=== PATIENT | male | born 1955 | race Two or more races ===

== ENCOUNTER 2025-08-10 16:04 | Emergency (ER) | payer OTHER, MEDICAID ==
[~2025-08-10] VITALS: Ht 172.7 cm; Wt 102.2 kg
[2025-08-10 16:06] VITALS: BP 183/101; RESP 16; TEMP 98; O2SAT 94
--- NOTE | 2025-08-10 16:26 | ECG ---
[facility] Test Date: 2025-08-10 Test Time: 16:19:49 Pat Name: ALYSA MARTINEZ Department: ED Room: Gender: M Social Media Specialist: DINA : 1955 Requested By: HIRA ISABEL Order Number: [id number] Reading MD: Иван Clancy Measurements Intervals [place] Rate: 75 P: 56 NC: 183 QRS: -59 QRSD: 106 T: -24 QT: 401 QTc: 448 Interpretive Statements Sinus rhythm Incomplete RBBB and LAFB Abnormal R-wave progression, early transition Probable LVH with secondary repol abnrm Electronically Signed On 08-16-2025 9:10:19 PDT by Иван Clancy Please click the below link to view image of tracing.
[2025-08-10 16:30] VITALS: PULSE 75
--- NOTE | 2025-08-10 16:30 | ED.PDOC ---
History of Present Illness HPI Comments 70-year-old male who comes in with chief complaint of elevated blood sugar. The patient also had an elevated blood pressure of 183/101. The patient went to the doctor's office today for a regular checkup. At the office, the patient's blood pressure was significantly elevated so he was sent to the emergency department's for evaluation. The patient has been having headaches off and on since this morning. He also states that he has been having headaches off and on some other mornings. Patient denies any chest pain or shortness a breath. There has been no nausea, vomiting or fever. Upon arrival, the patient is not having any chest pain. The patient states that he is compliant with his medications. Patient was given clonidine 0.3 mg by mouth by the primary care physician prior to arrival to the emergency department's. Chief Complaint: High Blood Pressure Time Seen by MD: 16:06 Reviewed Notes: Nurses Notes, Medications, Allergies (No allergies to medications) Allergies: Coded Allergies: NO KNOWN ALLERGIES (Unverified , 08/10/25) Information Source: Patient Mode of Arrival: Ambulatory Severity: Moderate Timing: Days Duration: Since onset Prehospital treatment: None Associated signs and symptoms The patient denies any chest pain or shortness for breath but the patient is having a headache Past Medical History PAST MEDICAL HISTORY: Cancer (Prostate), DM, High Lipids, HTN Surgical History (Other): Abdominal surgery Family History Family History: No family hx of Cancer, No family hx of DM, No family hx of Heart shruti Social History Smoker: Non-Smoker Alcohol: Denies ETOH Use Drugs: Denies Drug Use Lives In: Home Constitutional: denies: chills, diaphoresis, fatigue, fever, malaise, sweats, weakness, others EENTM: denies: blurred vision, double vision, ear bleeding, ear discharge, ear drainage, ear pain, ear ringing, eye pain, eye redness, hearing loss, mouth pain, mouth swelling, nasal discharge, nose bleeding, nose congestion, nose pain, photophobia, tearing, throat pain, throat swelling, voice changes, others Respiratory: denies: cough, hemoptysis, orthopnea, SOB at rest, shortness of breath, SOB with excertion, stridor, wheezing, others Cardiovascular: denies: chest pain, dizzy spells, diaphoresis, Dyspnea on exertion, edema, irregular heart beat, left arm pain, lightheadedness, palpitations, PND, syncope, others Gastrointestinal: denies: abdomen distended, abdominal pain, blood streaked bowels, constipated, diarrhea, dysphagia, difficulty swallowing, hematemesis, melena, nausea, poor appetite, poor fluid intake, rectal bleeding, rectal pain, vomiting, others Genitourinary: denies: burning, dysuria, flank pain, frequency, hematuria, inc ontinence, penile discharge, penile sore, pain, testicle pain, testicle swelling, urgency, others Neurological: reports: headache; denies: dizziness, fainting, left sided numbness, left sided weakness, numbness, paresthesia, pre-existing deficit, right sided numbness, right sided weakness, seizure, speech problems, tingling, tremors, weakness, others Musculoskeletal: denies: back pain, gout, joint pain, joint swelling, muscle pain, muscle stiffness, neck pain, others Integumetry: denies: bruises, change in color, change in hair/nails, dryness, laceration, lesions, lumps, rash, wounds, others Allergic/Immunocompromised: denies: Difficulty Healing, Frequent Infections, Hives, Itching, others Hematologic/Lymphatic: denies: anemia, blood clots, easy bleeding, easy bruising, swollen glands, others Endocrine: denies: excessive hunger, excessive sweating, excessive thirst, excessive urination, flushing, intolerance to cold, intolerance to heat, unexplained weight gain, unexplained weight loss, others Psychiatric: denies: anxiety, bipolar disorder, depression, hopeless, panic disorder, schizophrenia, sleepless, suicidal, others Physical Exam General Appearance: Moderate Distress HEENT: Normal ENT Inspection, Pharynx Normal, TMs Normal Neck: Full Range of Motion, Non-Tender, Normal, Normal Inspection Respiratory: Chest Non-Tender, Lungs Clear, No Accessory Muscle Use, No Resp iratory Distress, Normal Breath Sounds Cardiovascular: No Edema, No JVD, No Murmur, No Gallop, Normal Peripheral Pulses, Regular Rate/Rhythm Breast Exam: Deferred Gastrointestinal: No Organomegaly, Non Tender, No Pulsatile Mass, Normal Bowel Sounds, Soft Genitalia: Deferred Pelvic: Deferred Rectal: Deferred Extremities: No calf tenderness, Normal capillary refill, Normal inspection, Normal range of motion, Non-tender, No pedal edema Musculoskeletal : Apperance: Normal Neurologic: Alert, behavioral pediatrician II-XII nml as Tested, No Motor Deficits, Normal Affect, Normal Mood, No Sensory Deficits Cerebellar Function: Normal Reflexes: Normal Skin: Dry, Normal Color, Warm Lymphatic: No Adenopathy Was a procedure done? Was a procedure done?: No EKG EKG : Pulse Rate (adult): 75 [place]: Normal Cardiac Rhythm: NSR ST: Nonsp (Incomplete right bundle-branch block) Differential Dx Considerations may include: Generalized weakness, electrolyte imbalance, dehydration, ACS, NH, hypertensive crisis X-Ray, Labs, Meds, VS Vital Signs Date Time Temp Pulse Resp B/P (MAP) Pulse Ox O2 Delivery O2 Flow Rate FiO2 08/10/25 16:30 75 08/10/25 16:19 75 08/10/25 16:06 98.0 80 16 183/101 94 98.0 Lab Test 08/10/25 16:46 08/10/25 16:23 Range/Units White Blood Count 4.8 4.4-10.8 10^3/uL Red Blood Count 5.10 4.5-5.90 10^6/uL Hemoglobin 14.7 13.5-17.5 g/dL Hematocrit 42.9 41.0-53.0 % Mean Corpuscular Volume 84.1 80.0-100.0 fL Mean Corpuscular Hemoglobin 28.9 28.0-32.0 pg Mean Corpuscular Hemoglobin Concent 34.3 32.0-36.0 g/dL Red Cell Distribution Width 13.7 11.8-14.3 % Platelet Count 234 140-450 10^3/uL Mean Platelet Volume 7.5 6.9-10.8 fL Neutrophils (%) (Auto) 56.2 37.0-80.0 % Lymphocytes (%) (Auto) 29.1 10.0-50.0 % Monocytes (%) (Auto) 11.7 0.0-12.0 % Eosinophils (%) (Auto) 2.7 0.0-7.0 % Basophils (%) (Auto) 0.3 0.0-2.0 % Neutrophils # (Auto) 2.7 1.6-8.6 10 ^3/uL Lymphocytes # (Auto) 1.4 0.4-5.4 10 ^3/uL Monocytes # (Auto) 0.6 0-1.3 10 ^3/uL Eosinophils # (Auto) 0.1 0-0.8 10 ^3/uL Basophils # (Auto) 0 0-0.2 10 ^3/uL Nucleated Red Blood Cells 0.2 % Sodium Level 134 L 136-145 mmol/L Potassium Level 3.8 3.5-5.1 mmol/L Chloride Level 100 98-107 mmol/L Carbon Dioxide Level 24 20-31 mmol/L Anion Gap 10 5-15 Blood Urea Nitrogen 9 9-23 mg/dL Creatinine 0.91 0.700-1.30 mg/dL Glomerular Filtration Rate Calc 90 >90 mL/min BUN/Creatinine Ratio 9.9 L 10.0-20.0 Serum Glucose 367 H 74-106 mg/dL Calcium Level 8.9 8.7-10.4 mg/dL POC Glucose 373 H 70-106 mg/dl The patient was given clonidine for the elevated blood pressure The patient's CBC is within normal limits The patient's chemistry panel is within normal limits The patient was initially given clonidine 0.3 mg by mouth by the primary care doctor We had to repeat another clonidine here in the emergency department's The patient is hyperglycemic The patient is being admitted at this time Images Reviewed?: Images reviewed and evaluated by me Time of 1ST Reevaluation: 16:29 Reevaluation 1ST: Unchanged Time of 2ND Reevaluation: 20:19 Reevaluation 2ND: Unchanged Patient Education/Counseling: Diagnosis, Treatment, Prognosis Family Education/Counseling: No Family Present SEPSIS Sepsis Screen Date sepsis recognized/suspect: Aug 10, 2025 Time Sepsis recognized/suspect: 1606 Recent Procedure: No On Antibiotic Therapy: No Respiratory Rate >20: No Heart Rate >90: No Temp<36 C (96.8 F) or >38.3 C: No SBP <90 or MAP <65 mmHG: No New Acute Mental Status Change: No Is the patient on CPAP, BIPAP,: No Physician Orders Urinalysis (08/10/25 16:24) Heplock Iv (08/10/25 16:24) Business Objects Analyst (08/10/25 16:24) Blood Pressure (08/10/25 16:24) Pulse Oximetry (08/10/25 16:24) Vital Signs Date Time Temp Pulse Resp B/P (MAP) Pulse Ox O2 Delivery O2 Flow Rate FiO2 08/10/25 16:30 75 08/10/25 16:19 75 08/10/25 16:06 98.0 80 16 183/101 94 98.0 Laboratory Tests Test 08/10/25 16:46 White Blood Count 4.8 10^3/uL (4.4-10.8) Departure 1 Departure Time of Disposition: 20:18 Impression: Primary Impression: Accelerated hypertension Additional Impression: Uncontrolled diabetes mellitus Qualified Codes: E13.65 - Other specified diabetes mellitus with hyperglycemia Disposition: ADMITTED INPATIENT Admit to: Tele Condition: Fair Critical Care Note Critical Care Time?: Yes (45 min-critical care time only) Stability Stability form required: Yes Unstable for transfer: Telemetry monitoring (Telemetry monitoring required), ED Physician Assesment (Clinical assesment) Heart Score Heart Score: Heart Score Response (Comments) Value History N/A 0 EKG N/A 0 Age N/A 0 Risk Factors N/A 0 Troponin N/A 0 Total 0 HIRA ISABEL MD Aug 10, 2025 16:30
[2025-08-10 16:59] LABS: Hematocrit 42.9 % (41.0-53.0); Hemoglobin 14.7 g/dL (13.5-17.5); Mean Corpuscular Hemoglobin 28.9 pg (28.0-32.0); Mean Corpuscular Volume 84.1 fL (80.0-100.0); Nucleated Red Blood Cells % 0.2 %
[2025-08-10 17:03] LABS: Chloride 100 mmol/L (98-107); Potassium 3.8 mmol/L (3.5-5.1)
[2025-08-10 17:04] LABS: Anion Gap 10 (5-15); Calcium 8.9 mg/dL (8.7-10.4); Carbon Dioxide 24 mmol/L (20-31)
[2025-08-10 17:05] LABS: Sodium 134 mmol/L (136-145)
[2025-08-10 17:09] LABS: BUN/Creatinine Ratio 9.9 (10.0-20.0)
[2025-08-10 17:10] LABS: Blood Urea Nitrogen 9 mg/dL (9-23); Glucose 367 mg/dL (74-106)
== END 2025-08-10 23:14 | disposition left against medical advice (07) ==
LOC: ER 16:08
DX: I10 Essential (primary) hypertension (principal); E11.65 Type 2 diabetes mellitus with hyperglycemia
CPT/HCPCS: 36415; 80048; 82947; 82962; 85025; 93005

== ENCOUNTER 2025-08-11 10:24 | Inpatient (IN) | payer OTHER, MEDICAID ==
[~2025-08-11] VITALS: Ht 172.7 cm; Wt 99.7 kg
[2025-08-11] VITALS (7 sets, daily range): BP systolic 137–154; BP diastolic 81–95; PULSE 74–94; RESP 15–18; TEMP 97.8–98.9; O2SAT 95–96
--- NOTE | 2025-08-11 11:23 | ED.PDOC ---
History of Present Illness HPI Comments This is a 70 year old male presenting to the ED with chief complaint of HTN and hyperglycemia. Patient reports that he has been experiencing increased blood pressure and blood sugar for the past 2 days despite taking his medication, so he had been sent by his PCP to come to the ED for further evaluation. Patient relays that his son recently and his was yesterday, believing his BP increasing is due to an increase in stress. Patient denies any headache, chest pain, SOB, dizziness, or syncope. Chief Complaint: High Blood Pressure Time Seen by MD: 11:18 Reviewed Notes: Nurses Notes, Medications, Allergies Allergies: Coded Allergies: NO KNOWN ALLERGIES (Unverified , 08/10/25) Information Source: Patient Mode of Arrival: Ambulatory Severity: Moderate Timing: Days Duration: Since onset Past Medical History PAST MEDICAL HISTORY: Cancer, DM, High Lipids, HTN Surgical History: Denies all surgeries Family History Family History: Reviewed,noncontributory to illness, No family hx of Cancer, No family hx of DM, No family hx of Heart shruti Social History Smoker: Non-Smoker Alcohol: Denies ETOH Use Drugs: Denies Drug Use Lives In: Home Constitutional: denies: chills, diaphoresis, fatigue, fever, malaise, sweats, weakness, others EENTM: denies: blurred vision, double vision, ear bleeding, ear discharge, ear drainage, ear pain, ear ringing, eye pain, eye redness, hearing loss, mouth pain, mouth swelling, nasal discharge, nose bleeding, nose congestion, nose pain, photophobia, tearing, throat pain, throat swelling, voice changes, others Respiratory: denies: cough, hemoptysis, orthopnea, SOB at rest, shortness of breath, SOB with excertion, stridor, wheezing, others Cardiovascular: denies: chest pain, dizzy spells, diaphoresis, Dyspnea on exertion, edema, irregular heart beat, left arm pain, lightheadedness, palpitations, PND, syncope, others Gastrointestinal: denies: abdomen distended, abdominal pain, blood streaked bowels, constipated, diarrhea, dysphagia, difficulty swallowing, hematemesis, melena, nausea, poor appetite, poor fluid intake, rectal bleeding, rectal pain, vomiting, others Genitourinary: denies: burning, dysuria, flank pain, frequency, hematuria, incontinence, penile discharge, penile sore, pain, testicle pain, testicle swelling, urgency, others Neurological: denies: dizziness, fainting, headache, left sided numbness, left sided weakness, numbness, paresthesia, pre-existing deficit, right sided numbness, right sided weakness, seizure, speech problems, tingling, tremors, weakness, others Musculoskeletal: denies: back pain, gout, joint pain, joint swelling, muscle pain, muscle stiffness, neck pain, others Integumetry: denies: bruises, change in color, change in hair/nails, dryness, laceration, lesions, lumps, rash, wounds, others Allergic/Immunocompromised: denies: Difficulty Healing, Frequent Infections, Hives, Itching, others Hematologic/Lymphatic: denies: anemia, blood clots, easy bleeding, easy bruising, swollen glands, others Endocrine: denies: excessive hunger, excessive sweating, excessive thirst, excessive urination, flushing, intolerance to cold, intolerance to heat, unexplained weight gain, unexplained weight loss, others Psychiatric: denies: anxiety, bipolar disorder, depression, hopeless, panic disorder, schizophrenia, sleepless, suicidal, others All Other Systems: Reviewed and Negative Physical Exam General Appearance: Moderate Distress, Normal HEENT: Normal ENT Inspection, Pharynx Normal, TMs Normal Neck: Full Range of Motion, Non-Tender, Normal, Normal Inspection Respiratory: Chest Non-Tender, Lungs Clear, No Accessory Muscle Use, No Respiratory Distress, Normal Breath Sounds Cardiovascular: No Edema, No JVD, No Murmur, No Gallop, Normal Peripheral Pulses, Regular Rate/Rhythm Breast Exam: Deferred Gastrointestinal: No Organomegaly, Non Tender, No Pulsatile Mass, Normal Bowel Sounds, Soft Genitalia: Deferred Pelvic: Deferred Rectal: Deferred Extremities: No calf tenderness, Normal capillary refill, Normal inspection, Normal range of motion, Non-tender, No pedal edema Musculoskeletal : Apperance: Normal Neurologic: Alert, title i teacher II-XII nml as Tested, No Motor Deficits, Normal Affect, Normal Mood, No Sensory Deficits Cerebellar Function: Normal Reflexes: Normal Skin: Dry, Normal Color, Warm Peripheral Pulses: 3+ Radial (R), 3+ Radial (L) Lymphatic: No Adenopathy Was a procedure done? Was a procedure done?: No Differential Dx Considerations may include: Anemia Electrolyte imbalance X-Ray, Labs, Meds, VS Vital Signs Date Time Temp Pulse Resp B/P (MAP) Pulse Ox O2 Delivery O2 Flow Rate FiO2 08/11/25 10:34 75 08/11/25 10:28 98.0 79 13 189/105 96 98.0 Lab Test 08/11/25 11:12 08/11/25 10:35 Range/Units White Blood Count 4.7 4.4-10.8 10^3/uL Red Blood Count 5.17 4.5-5.90 10^6/uL Hemoglobin 15.1 13.5-17.5 g/dL Hematocrit 43.5 41.0-53.0 % Mean Corpuscular Volume 84.1 80.0-100.0 fL Mean Corpuscular Hemoglobin 29.2 28.0-32.0 pg Mean Corpuscular Hemoglobin Concent 34.7 32.0-36.0 g/dL Red Cell Distribution Width 13.5 11.8-14.3 % Platelet Count 244 140-450 10^3/uL Mean Platelet Volume 7.4 6.9-10.8 fL Neutrophils (%) (Auto) 60.7 37.0-80.0 % Lymphocytes (%) (Auto) 25.9 10.0-50.0 % Monocytes (%) (Auto) 10.0 0.0-12.0 % Eosinophils (%) (Auto) 3.3 0.0-7.0 % Basophils (%) (Auto) 0.1 0.0-2.0 % Neutrophils # (Auto) 2.8 1.6-8.6 10 ^3/uL Lymphocytes # (Auto) 1.2 0.4-5.4 10 ^3/uL Monocytes # (Auto) 0.5 0-1.3 10 ^3/uL Eosinophils # (Auto) 0.2 0-0.8 10 ^3/uL Basophils # (Auto) 0 0-0.2 10 ^3/uL Nucleated Red Blood Cells 0.1 % Sodium Level 140 # 136-145 mmol/L Potassium Level 3.8 3.5-5.1 mmol/L Chloride Level 101 98-107 mmol/L Carbon Dioxide Level 28 20-31 mmol/L Anion Gap 11 5-15 Blood Urea Nitrogen 17 9-23 mg/dL Creatinine 0.91 0.700-1.30 mg/dL Glomerular Filtration Rate Calc 90 >90 mL/min BUN/Creatinine Ratio 18.7 10.0-20.0 Serum Glucose 332 H 74-106 mg/dL Calcium Level 9.3 8.7-10.4 mg/dL Troponin I High Sensitivity 23 </=54 ng/L POC Glucose 355 H 70-106 mg/dl Patient alert. Blood sugar elevated. Blood pressure elevated. WBC within normal limits. Hemoglobin within normal limits. Ambulating. Patient he is under lot of stress. EKG reviewed does not show any acute process. Explained to the patient. Continue monitoring. Time of 1ST Reevaluation: 12:18 Reevaluation 1ST: Improved Patient Education/Counseling: Diagnosis, Treatment Family Education/Counseling: No Family Present SEPSIS Sepsis Screen Date sepsis recognized/suspect: Aug 11, 2025 Time Sepsis recognized/suspect: 1028 Recent Procedure: No On Antibiotic Therapy: No Respiratory Rate >20: No Heart Rate >90: No Temp<36 C (96.8 F) or >38.3 C: No SBP <90 or MAP <65 mmHG: No New Acute Mental Status Change: No Is the patient on CPAP, BIPAP,: No Physician Orders Electrocardigram (08/11/25 10:49) Troponin-I Hs (08/11/25 12:10) Troponin-I Hs (08/11/25 14:10) Vital Signs Date Time Temp Pulse Resp B/P (MAP) Pulse Ox O2 Delivery O2 Flow Rate FiO2 08/11/25 10:34 75 08/11/25 10:28 98.0 79 13 189/105 96 98.0 Laboratory Tests Test 08/11/25 11:12 White Blood Count 4.7 10^3/uL (4.4-10.8) Departure 1 Departure Time of Disposition: 12:11 Impression: Primary Impression: Uncontrolled diabetes mellitus Qualified Codes: E13.65 - Other specified diabetes mellitus with hyperglycemia Additional Impression: Hypertensive urgency Disposition: ADMITTED INPATIENT Admit to: Med Surg Condition: Guarded Critical Care Note Critical Care Time?: Yes (90 min-critical care time only) Stability Stability form required: No Heart Score Heart Score: Heart Score Response (Comments) Value History Slightly Suspicious 0 EKG Normal 0 Age >65 2 Risk Factors >3 or Hx ASHD 2 Troponin Normal limit 0 Total 4 I personally scribed for TATY HILLIARD MD ([email or web address]) on 08/11/25 at 11:23. Electronically submitted by German Lord ([email or web address]). TATY HILLIARD MD Aug 11, 2025 11:23
[2025-08-11 11:33] LABS: Hematocrit 43.5 % (41.0-53.0); Hemoglobin 15.1 g/dL (13.5-17.5); Mean Corpuscular Hemoglobin 29.2 pg (28.0-32.0); Mean Corpuscular Volume 84.1 fL (80.0-100.0); Nucleated Red Blood Cells % 0.1 %
[2025-08-11 11:37] LABS: Chloride 101 mmol/L (98-107); Potassium 3.8 mmol/L (3.5-5.1); Sodium 140 mmol/L (136-145)
[2025-08-11 11:38] LABS: Anion Gap 11 (5-15); Calcium 9.3 mg/dL (8.7-10.4); Carbon Dioxide 28 mmol/L (20-31)
[2025-08-11 11:43] LABS: BUN/Creatinine Ratio 18.7 (10.0-20.0); Blood Urea Nitrogen 17 mg/dL (9-23)
[2025-08-11 11:44] LABS: Glucose 332 mg/dL (74-106)
[2025-08-11] MEDS ORDERED: DEXTROSE (50%) 50ML SYRG IV PRN (13:15)
[2025-08-11] MEDS ORDERED: NITROGLYCERIN 0.4 MG SL TAB SL PRN (13:15)
[2025-08-11] MEDS ORDERED: DOCUSATE SOD 100 MG CAP PO PRN (13:15)
[2025-08-11] MEDS ORDERED: ONDANSETRON HCL 4 MG/2 ML VIAL IV PRN (13:15)
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
[2025-08-11] MEDS: InsuLIN REG 1unit/0.01ml Soln (100units/ml) IV ONE (14:06)
[2025-08-11] MEDS: LISINOPRIL 20 MG TAB PO ONE (14:21)
[2025-08-11] MEDS: InsuLIN REG 1unit/0.01ml Soln (100units/ml) SC SCH ×2 (17:00→21:56)
[2025-08-11] MEDS: ACCU-CHEK COMFORT CURVE STRIP VI SCH (17:00)
--- NOTE | 2025-08-11 17:41 | DVHINCON2 ---
Date Seen: Aug 11, 2025 Referring Physician TEQUILA Ramsay Reason for Consultation Chest pain History of Present Illness This is a 70-year-old male patient who presents to emergency room after being instructed to come here by his primary care provider. The patient reports he has been struggling with controlling his blood pressure as well as his blood sugars at home. He was referred here by his primary doctor Dr. Vincent for concerns with the blood pressure. He denies any symptoms. He does mention the recent loss of his son on 08/02/2025 which has caused him much anxiety and stress. The hospitalists' reason for consultation has been documented as "chest pain". But the patient denies any chest pain prior to emergency room arrival or while in the hospital. Initial twelve lead electrocardiogram reveals normal sinus rhythm with nonspecific T-wave changes to inferior leads. Initial troponin level of 23ng/L with down trend thereafter. Significant past medical history includes hypertension, type 2 diabetes mellitus, prostate cancer status post radiation, and obesity. The patient admits to not taking his antihypertensives for approximately three weeks due to running out while switching primary care providers. He also mentions a previous coronary angiogram in 2019 in which no catheter based intervention was deemed necessary. Past Medical History Past medical history reviewed. No other significant than mentioned above. Past Surgical History Denies any previous surgeries Family History: Diabetes mellitus Hypertension Family History Family history reviewed. Social History Patient admits to previous marijuana use Denies any tobacco use Denies alcohol use Allergies: Coded Allergies: NO KNOWN ALLERGIES (Unverified , 08/10/25) Home Meds Home medications reviewed. Current Medications Current Medications Medications (Trade) Dose Ordered Sig/Radha Route PRN Reason Start Time Stop Time Status Last Admin Ondansetron HCl (Zofran) 4 mg Q4HP PRN IV NAUSEA / VOMITING 08/11/25 13:15 Docusate Sodium (Colace Capsule) 100 mg BIDPRN PRN PO FOR CONSTIPATION 08/11/25 13:15 Enoxaparin Sodium (Lovenox) 40 mg DAILY SC 08/12/25 10:00 Morphine Sulfate 2 mg Q4HPRN PRN IV SEVERE PAIN (7-10 PAIN SCALE) 08/11/25 13:15 Nitroglycerin (Ntrostat Sublingual) 0.4 mg Q5MINP PRN SL FOR CHEST PAIN 08/11/25 13:15 Lisinopril (Zestril Tablet) 20 mg DAILY PO 08/12/25 10:00 Hydralazine HCl (Apresoline Injection) 10 mg Q6HP PRN IV SBP>150 08/11/25 13:15 Diagnostic Test (Pha) (Accu-Chek Comfort Curve T) 1 strip ACHS 08/11/25 17:00 Insulin Human Regular (InsuLIN R) HS SC 08/11/25 22:00 Insulin Human Regular (InsuLIN R) AC SC 08/11/25 17:00 Dextrose 50 ml UD PRN IV Blood Sugar LESS THAN 60 08/11/25 13:15 Aspirin 81 mg DAILY PO 08/12/25 10:00 Atorvastatin Calcium (Lipitor) 20 mg HS PO 08/11/25 22:00 Review of Systems Constitutional: No symptom reported Ears, Nose, & Throat: No symptom reported Eyes: No symptom reported Neurological: No symptoms reported Pulmonary/Respiratory: No symptoms reported Cardiovascular: No symptom reported Gastrointestinal: No symptom reported Genitourinary: No symptom reported Musculoskeletal: No symptom reported Skin: No symptom reported Psychiatric: No symptom reported Endocrine: No symptom reported Hematologic/Lymphatic: No symptom reported Vital Signs Vital Signs Date Time Temp Pulse Resp B/P (MAP) Pulse Ox O2 Delivery O2 Flow Rate FiO2 08/11/25 16:43 80 16 96 Room Air* 0 21 08/11/25 16:30 97.8 137/81 (99) 97.8 Physical Exam General Appearance: Cooperative. Well-developed. Well-nourished. No acute distress. Pulmonary/Respiratory: Clear, bilateral breaths sounds. Cardiovascular/Chest: Regular rate and rhythm. Peripheral Pulses: 2+ Radial (R). 2+ Radial (L). 2+ Pedal (R). 2+ Pedal (L) Abdominal Exam: Normal bowel sounds. Ankle Exam: Bilateral nonpitting ankle edema Lower extremities: Negative lower extremity edema Neuro/Mental Status: A/OX4, coherent. Thoughts/Psych: Normal thought pattern. Appropriate mood and affect. Good judgment and insight. Appearance: No acute distress. Skin Exam: Normal inspection. Normal color. Warm and dry. Labs/Diagnostic Data Labs Test 08/11/25 14:02 08/11/25 12:22 08/11/25 11:12 Range/Units POC Glucose 247 H 70-106 mg/dl Troponin I High Sensitivity 22 </=54 ng/L Beta-Hydroxybutyric Acid 0.101 < 0.4 mmol/L White Blood Count 4.7 4.4-10.8 10^3/uL Red Blood Count 5.17 4.5-5.90 10^6/uL Hemoglobin 15.1 13.5-17.5 g/dL Hematocrit 43.5 41.0-53.0 % Mean Corpuscular Volume 84.1 80.0-100.0 fL Mean Corpuscular Hemoglobin 29.2 28.0-32.0 pg Mean Corpuscular Hemoglobin Concent 34.7 32.0-36.0 g/dL Red Cell Distribution Width 13.5 11.8-14.3 % Platelet Count 244 140-450 10^3/uL Mean Platelet Volume 7.4 6.9-10.8 fL Neutrophils (%) (Auto) 60.7 37.0-80.0 % Lymphocytes (%) (Auto) 25.9 10.0-50.0 % Monocytes (%) (Auto) 10.0 0.0-12.0 % Eosinophils (%) (Auto) 3.3 0.0-7.0 % Basophils (%) (Auto) 0.1 0.0-2.0 % Neutrophils # (Auto) 2.8 1.6-8.6 10 ^3/uL Lymphocytes # (Auto) 1.2 0.4-5.4 10 ^3/uL Monocytes # (Auto) 0.5 0-1.3 10 ^3/uL Eosinophils # (Auto) 0.2 0-0.8 10 ^3/uL Basophils # (Auto) 0 0-0.2 10 ^3/uL Nucleated Red Blood Cells 0.1 % Sodium Level 140 # 136-145 mmol/L Potassium Level 3.8 3.5-5.1 mmol/L Chloride Level 101 98-107 mmol/L Carbon Dioxide Level 28 20-31 mmol/L Anion Gap 11 5-15 Blood Urea Nitrogen 17 9-23 mg/dL Creatinine 0.91 0.700-1.30 mg/dL Glomerular Filtration Rate Calc 90 >90 mL/min BUN/Creatinine Ratio 18.7 10.0-20.0 Serum Glucose 332 H 74-106 mg/dL Calcium Level 9.3 8.7-10.4 mg/dL Assessment Hypertensive urgency Rule out structural heart disease Type 2 diabetes mellitus History prostate cancer status post radiation Morbid obesity Plan/Recommendation We will continue with the following plan/recommendations (Dr. Clancy): We will proceed with obtaining a transthoracic echocardiogram to evaluate cardiac function. Continue with the aggressive blood pressure control as tolerated. Labs: Lipid panel, TSH, UDS pending. Continue with close cardiac surveillance. Further recommendations per clinical course and progression. Thank you for allowing us to care for this patient. Please call with any questions or concerns. Critical care time spent: 44 minutes This medical document was created using an electronic medical record system with voice recognition software and computerized dictation system. Although this document has been carefully reviewed, there might still be some phonetic and typographical errors. Occasional wrong-word or ``sound-alike substitutions may have occurred due to the inherent limitations of voice recognition software. These areas are purely typographical due to imperfections of the software programs and do not reflect any compromise in the patient's medical care. Please read the chart carefully and recognize, using context, where these substitutions have occurred. Plan discussed with: Patient NYHA Physical activity limitations: NA Date of Service: Aug 11, 2025 Billing Provider: CHIOMA GOVEA Cardiology Common Codes: [id number] INP/OBS CARE (High) Cardiology Consultation Codes: [id number] CONSULT <45MIN CHIOMA GOVEA Aug 11, 2025 17:41
--- NOTE | 2025-08-11 17:58 | ECG ---
[facility] Test Date: 2025-08-11 Test Time: 10:34:37 Pat Name: ALYSA MARTINEZ Department: ED Room: 0251T A Gender: M Stoneworker: chelo : 1955 Requested By: TATY HILLIARD Order Number: [id number] Reading MD: Иван Clancy Measurements Intervals Spring Rate: 75 P: 34 [place]: 180 QRS: -51 QRSD: 106 T: -8 QT: 407 QTc: 455 Interpretive Statements Sinus rhythm Incomplete RBBB and LAFB Minimal ST elevation, anterior leads Baseline wander in lead(s) V6 Electronically Signed On 08-16-2025 9:25:48 PDT by Иван Clancy Please click the below link to view image of tracing.
[2025-08-11] MEDS: ATORVASTATIN 20 MG TAB PO SCH (21:57)
[2025-08-12] VITALS (9 sets, daily range): BP systolic 147–166; BP diastolic 83–106; PULSE 67–102; RESP 16–20; TEMP 97.7–98.9; O2SAT 94–99
[2025-08-12] MEDS: hydrALAZINE HCL 20 MG/ML VL IV PRN (02:08)
[2025-08-12 05:32] LABS: Amphetamine Screen, Urine Neg (NEGATIVE); Barbiturate Scree,Urine Neg (NEGATIVE); Benzodiazephine Screen, Urine Neg (NEGATIVE); Cannabinoid Screen, Urine Neg (NEGATIVE); Cocaine Screen, Urine Neg (NEGATIVE); Opiate Scree,Urine Neg (NEGATIVE); Phencyclidine Screen, Urine Neg (NEGATIVE)
[2025-08-12 05:42] LABS: Hematocrit 41.5 % (41.0-53.0); Hemoglobin 14.4 g/dL (13.5-17.5); Mean Corpuscular Hemoglobin 29.1 pg (28.0-32.0); Mean Corpuscular Volume 83.6 fL (80.0-100.0); Nucleated Red Blood Cells % 0.0 %
[2025-08-12 05:58] LABS: Alanine Aminotransferase 32 U/L (7-40); Albumin 3.9 g/dL (3.2-4.8); Alkaline Phosphatase 115 U/L (46-116); Anion Gap 12 (5-15); BUN/Creatinine Ratio 20.0 (10.0-20.0); Blood Urea Nitrogen 17 mg/dL (9-23); Calcium 9.0 mg/dL (8.7-10.4); Carbon Dioxide 24 mmol/L (20-31); Chloride 100 mmol/L (98-107); Magnesium 2.0 mg/dL (1.6-2.6); Potassium 3.8 mmol/L (3.5-5.1); Total Protein 6.6 g/dL (5.7-8.2)
[2025-08-12 05:59] LABS: Bilirubin, Total 0.5 mg/dL (0.2-1.0); Cholesterol 261 mg/dL (< 200); Glucose 282 mg/dL (74-106); HDL Cholesterol 35 mg/dL (40-59); Sodium 136 mmol/L (136-145); Triglycerides 680 mg/dL (< 150)
[2025-08-12] MEDS: LISINOPRIL 20 MG TAB PO SCH (09:23)
[2025-08-12] MEDS: ENOXAPARIN SOD 40 MG/0.4 ML SYRINGE SC SCH (09:24)
--- NOTE | 2025-08-12 17:07 | DVHPN2 ---
Consult Progress Note Subjective Other Systems: Patient was in normal sinus rhythm at time of assessment Denies any cardiac symptoms at time of assessment Objective vital signs Vital Sign Date Time Temp Pulse Resp B/P (MAP) Pulse Ox O2 Delivery O2 Flow Rate FiO2 08/12/25 13:00 98.0 70 20 166/106 (126) 95 98.0 08/12/25 08:00 Room Air* 0 21 Total Intake and Output 08/11/25 08/11/25 08/12/25 15:00 23:00 07:00 Intake Total 1200 ml 750 ml Balance 1200 ml 750 ml medications Current Medications Medications Dose Ordered Sig/Radha Route Start Time Stop Time Status Last Admin Dose Admin Ondansetron HCl 4 mg Q4HP PRN IV 08/11/25 13:15 Docusate Sodium 100 mg BIDPRN PRN PO 08/11/25 13:15 Enoxaparin Sodium 40 mg DAILY SC 08/12/25 10:00 08/12/25 09:24 40 MG Morphine Sulfate 2 mg Q4HPRN PRN IV 08/11/25 13:15 Nitroglycerin 0.4 mg Q5MINP PRN SL 08/11/25 13:15 Lisinopril 20 mg DAILY PO 08/12/25 10:00 08/12/25 09:23 20 MG Hydralazine HCl 10 mg Q6HP PRN IV 08/11/25 13:15 08/12/25 12:55 10 MG Diagnostic Test (Pha) 1 strip ACHS 08/11/25 17:00 08/12/25 11:50 1 STRIP Insulin Human Regular HS SC 08/11/25 22:00 08/11/25 21:56 8 UNITS Insulin Human Regular AC SC 08/11/25 17:00 08/12/25 11:52 9 UNITS Dextrose 50 ml UD PRN IV 08/11/25 13:15 Aspirin 81 mg DAILY PO 08/12/25 10:00 08/12/25 09:23 81 MG Atorvastatin Calcium 80 mg HS PO 08/12/25 22:00 EZETIMIBE 10 mg DAILY PO 08/13/25 10:00 Examination: GENERAL:Normal, LUNGS:Normal, CVS:Normal, NEURO:Normal laboratory and microbiology Laboratory Tests 08/12/25 04:13 Test 08/12/25 04:13 Range/Units Serum Glucose 282 H 74-106 mg/dL Problem List/Assessment/Plan Problem List/Assessment/Plan Hypertensive urgency Rule out structural heart disease Severe hypertriglyceridemia Dyslipidemia Type 2 diabetes mellitus, uncontrolled with hemoglobin A1c 10.0% History prostate cancer status post radiation Morbid obesity Dietary noncompliance Plan/Recommendations (Dr. Clancy): We will proceed with obtaining a transthoracic echocardiogram to evaluate cardiac function. Continue with the aggressive blood pressure control as tolerated. Patient noted to have severe hypertriglyceridemia at 680mg/dL. Increase statin therapy, recommend addition of fenofibrate as outpatient (as we do not carry this medication inpatient). The patient reports being off of all of his medications for over one month while in the process of switching over primary care provider's. The patient reports his previous PCP would not refill his medications if he did not come in to the office to see them. This upset the patient which prompted him to switch providers, but unknowingly to him, the process took longer than expected. Had an extensive conversation with the patient regarding risk factor modifications. During the time of assessment, the patient is noted to have a Alexander's bag at bedside. Patient educated about proper diet as well as compliance with medications. Continue with close cardiac surveillance. Further recommendations per clinical course and progression. Thank you for allowing us to care for this patient. Please call with any questions or concerns. This medical document was created using an electronic medical record system with voice recognition software and computerized dictation system. Although this document has been carefully reviewed, there might still be some phonetic and typographical errors. Occasional wrong-word or ``sound-alike substitutions may have occurred due to the inherent limitations of voice recognition software. These areas are purely typographical due to imperfections of the software programs and do not reflect any compromise in the patient's medical care. Please read the chart carefully and recognize, using context, where these substitutions have occurred. Plan discussed with: Patient Date of Service: Aug 13, 2025 Billing Provider: CHIOMA GOVEA Common Visit Codes: [id number] INP/OBS CARE(HIGH) CHIOMA GOVEA Aug 12, 2025 17:07
[2025-08-12] MEDS: EZETIMIBE 10 MG TAB PO ONE (17:48)
--- NOTE | 2025-08-12 18:23 | DVHPN2 ---
Subjective Patient has stated that he has been struggling with a complaining of blood sugar as well as hypertension. Changes from previous H/P or p: No Changes Eyes: No Pain, No Vision change, No Conjunctivae inflammation, No Eyelid inflammation, No Other, No Redness ENT: No Ear pain, No Ear discharge, No Nose pain, No Nose discharge, No Nose congestion, No Mouth pain, No Mouth swelling, No Throat pain, No Throat swelling, No Other Cardiovascular: No Chest Pain, No Palpitations, No Orthopnea, No Paroxysmal Noc. Dyspnea, No Edema, No Lt Headedness, No Other Respiratory: No Cough, No Dry, No Shortness of breath, No SOB with excertion, No Wheezing, No Hemoptysis, No Pleuritic Pain, No Sputum, No Other Gastrointestinal: No Nausea, No Vomiting, No Abdominal Pain, No Diarrhea, No Constipation, No Melena, No Hematochezia, No Other Genitourinary: No Dysuria, No Frequency, No Incontinence, No Hematuria, No Retention, No Other Musculoskeletal: No other, No neck pain, No shoulder pain, No arm pain, No back pain, No hand pain, No leg pain, No foot pain Skin: No Rash, No Lesions, No Jaundice, No Bruising, No Other Objective Vitals Vital Signs Date Time Temp Pulse Resp B/P (MAP) Pulse Ox O2 Delivery O2 Flow Rate FiO2 08/12/25 17:00 97.7 93 20 151/102 (118) 96 97.7 08/12/25 08:00 Room Air* 0 21 Intake/Output Intake and Output 08/12/25 07:00 Intake Total 1950 ml Balance 1950 ml Intake Oral 1950 ml # Voids 6 # Bowel Movements 1 Exam HEENT pupils are reactive Neck is supple CV is S1-S2 regular rate and rhythm Respiratory diminished breath sounds bases GI positive bowel sound 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 Medications Current Medications Medications Dose Ordered Sig/Radha Route Start Time Stop Time Status Last Admin Dose Admin Ondansetron HCl 4 mg Q4HP PRN IV 08/11/25 13:15 Docusate Sodium 100 mg BIDPRN PRN PO 08/11/25 13:15 Enoxaparin Sodium 40 mg DAILY SC 08/12/25 10:00 08/12/25 09:24 40 MG Morphine Sulfate 2 mg Q4HPRN PRN IV 08/11/25 13:15 Nitroglycerin 0.4 mg Q5MINP PRN SL 08/11/25 13:15 Lisinopril 20 mg DAILY PO 08/12/25 10:00 08/12/25 09:23 20 MG Hydralazine HCl 10 mg Q6HP PRN IV 08/11/25 13:15 08/12/25 12:55 10 MG Diagnostic Test (Pha) 1 strip ACHS 08/11/25 17:00 08/12/25 17:47 1 STRIP Insulin Human Regular HS SC 08/11/25 22:00 08/11/25 21:56 8 UNITS Insulin Human Regular AC SC 08/11/25 17:00 08/12/25 17:47 9 UNITS Dextrose 50 ml UD PRN IV 08/11/25 13:15 Aspirin 81 mg DAILY PO 08/12/25 10:00 08/12/25 09:23 81 MG Atorvastatin Calcium 80 mg HS PO 08/12/25 22:00 EZETIMIBE 10 mg DAILY PO 08/13/25 10:00 Laboratory Results Laboratory Tests 08/12/25 04:13 Chemistry Test 08/12/25 04:13 Albumin 3.9 g/dL (3.2-4.8) Calcium Level 9.0 mg/dL (8.7-10.4) Magnesium Level 2.0 mg/dL (1.6-2.6) Total Protein 6.6 g/dL (5.7-8.2) Lipid panel Test 08/12/25 04:13 Cholesterol Level 261 mg/dL (< 200) H HDL Cholesterol 35 mg/dL (40-59) L Triglycerides Level 680 mg/dL (< 150) H LFT Test 08/12/25 04:13 Alanine Aminotransferase (ALT) 32 U/L (7-40) Alkaline Phosphatase 115 U/L (46-116) Aspartate Amino Transferase (AST) 26 U/L (13-40) Total Bilirubin 0.5 mg/dL (0.2-1.0) HgA1c, TSH Test 08/12/25 04:13 Hemoglobin A1c 10.0 % A1C (<5.7) H Thyroid Stimulating Hormone (TSH) 3.46 uIU/mL (0.55-4.78) Assessment/Plan Assessment/Plan 70-year-old male with a known history of type 2 diabetes mellitus, hypertension, history of prostate cancer status post radiation presented to the hospital with a high blood sugar and hypertension found to have 1. Hypertensive urgency 2. Uncontrolled hyperglycemia in the setting of diabetes mellitus type 2 with a hemoglobin A1c>10 3. Morbid obesity classI 4. History of prostate cancer status post radiation -continue diabetic meds, continue hypertensive medications, follow up Cardiology recommendations Plan discussed with: Patient Date of Service: Aug 12, 2025 Billing Provider: SHAVONNE PICKERING MD Common Visit Codes: [id number] INP/OBS CARE(MOD) SHAVONNE PICKERING MD Aug 12, 2025 18:23
[2025-08-12] MEDS ORDERED: LOSA-534 PO (19:38)
[2025-08-12] MEDS ORDERED: GLIM4TAB42 PO (19:38)
[2025-08-12] MEDS ORDERED: ASPI-543 PO (19:38)
[2025-08-12] MEDS ORDERED: AML5T PO (19:38)
[2025-08-12] MEDS ORDERED: METO25TA5 PO (19:38)
[2025-08-12] MEDS ORDERED: CHOL20007 PO (19:38)
[2025-08-12] MEDS ORDERED: CANA100T PO (19:38)
[2025-08-12] MEDS ORDERED: PIO30T PO (19:38)
[2025-08-12] MEDS ORDERED: ATOR20TA50 PO (19:38)
[2025-08-12] MEDS ORDERED: HYDR12.59 PO (19:38)
[2025-08-12] MEDS: ATORVASTATIN 20 MG TAB PO SCH (21:20)
[2025-08-13] VITALS (8 sets, daily range): BP systolic 125–178; BP diastolic 79–103; PULSE 69–96; RESP 16–21; TEMP 97.1–99.3; O2SAT 93–98
[2025-08-13] MEDS: MORPHINE SULFATE INJ 2 MG/ml SYRG IV PRN (06:39)
[2025-08-13] MEDS ORDERED: METOPROLOL SUCCINATE XL 50 MG TAB PO ONE (07:10)
[2025-08-13] MEDS: METOPROLOL SUCCINATE XL 50 MG TAB PO SCH (07:12)
[2025-08-13] MEDS: EZETIMIBE 10 MG TAB PO SCH (09:24)
[2025-08-13] MEDS: LISINOPRIL 20 MG TAB PO SCH (09:24)
[2025-08-13 11:21] LABS: Hematocrit 45.0 % (41.0-53.0); Hemoglobin 15.3 g/dL (13.5-17.5); Mean Corpuscular Hemoglobin 28.6 pg (28.0-32.0); Mean Corpuscular Volume 84.3 fL (80.0-100.0); Nucleated Red Blood Cells % 0.1 %
[2025-08-13 11:26] LABS: Chloride 99 mmol/L (98-107); Potassium 4.2 mmol/L (3.5-5.1)
[2025-08-13 11:27] LABS: Anion Gap 11 (5-15); Carbon Dioxide 23 mmol/L (20-31)
[2025-08-13 11:28] LABS: Calcium 9.3 mg/dL (8.7-10.4)
[2025-08-13 11:32] LABS: BUN/Creatinine Ratio 15.5 (10.0-20.0); Blood Urea Nitrogen 13 mg/dL (9-23)
[2025-08-13 11:41] LABS: Glucose 322 mg/dL (74-106); Sodium 133 mmol/L (136-145)
--- NOTE | 2025-08-13 16:10 | DVHSR ---
APPROVED REPORT EXAM: Two-dimensional and M-mode echocardiogram with Doppler and color Doppler. Blood Pressure: 147/91 mmHg INDICATION Eval for cardiac function and ef RISK FACTORS Obesity: Height: 5'8", Weight: 227 DIMENSIONS LVDd (3.8-5.7cm)LA (2D)4.1 (1.9-4.0cm)Aortic Root (2.0-3.7cm) EF (%) 60.0 (55-70%)Rt. Atrium4.5 (1.9-4.0cm)Asc. Aorta cm Mitral Valve MitralMitral Stenosis E wave0.64m/sMV Mean GR.mmHg A wave0.72m/sMV Peak GR.mmHg E/A ratio0.92D MVAcm2 DECEL [id number] 1/2 Timems Aortic Valve Aortic ValveAortic Stenosis V10.95m/Amor Mean GR.5mmHg V21.58m/Amor Peak GR.10mmHg LVOT Diameter2.1 (1.8-2.4cm)Doppler AVA2.08cm2 Tricuspid Valve TR Velocity2.82m/s [id number] Other Information Quality : LimitedRhythm : Technically limited study due to body habitus. Conclusion Sinus rhythm. Off axis views. Biatrial enlargement. Mild aortic calcification. Mild aortic sclerosis. Left ventricular function is preserved. EF is about 60% with normal RV function. Mild TR. RVSP of 60 mmHg. Dopplers unremarkable. No pericardial effusion masses or vegetations.
--- NOTE | 2025-08-13 17:27 | DVHPN2 ---
Consult Progress Note Subjective Other Systems: Patient denies any cardiac symptoms at time of assessment Objective vital signs Vital Sign Date Time Temp Pulse Resp B/P (MAP) Pulse Ox O2 Delivery O2 Flow Rate FiO2 08/13/25 16:57 166/92 08/13/25 13:00 98.0 83 20 98.0 08/13/25 09:00 98 08/13/25 08:00 Room Air* 0 21 Total Intake and Output 08/12/25 08/12/25 08/13/25 15:00 23:00 07:00 Intake Total 500 ml 2400 ml Balance 500 ml 2400 ml medications Current Medications Medications Dose Ordered Sig/Radha Route Start Time Stop Time Status Last Admin Dose Admin Ondansetron HCl 4 mg Q4HP PRN IV 08/11/25 13:15 Docusate Sodium 100 mg BIDPRN PRN PO 08/11/25 13:15 Enoxaparin Sodium 40 mg DAILY SC 08/12/25 10:00 08/13/25 09:25 40 MG Morphine Sulfate 2 mg Q4HPRN PRN IV 08/11/25 13:15 08/13/25 06:39 2 MG Nitroglycerin 0.4 mg Q5MINP PRN SL 08/11/25 13:15 Hydralazine HCl 10 mg Q6HP PRN IV 08/11/25 13:15 08/13/25 16:57 10 MG Diagnostic Test (Pha) 1 strip ACHS 08/11/25 17:00 08/13/25 17:05 1 STRIP Insulin Human Regular HS SC 08/11/25 22:00 08/12/25 21:25 8 UNITS Insulin Human Regular AC SC 08/11/25 17:00 08/13/25 17:07 3 UNITS Dextrose 50 ml UD PRN IV 08/11/25 13:15 Aspirin 81 mg DAILY PO 08/12/25 10:00 08/13/25 09:24 81 MG Atorvastatin Calcium 80 mg HS PO 08/12/25 22:00 08/12/25 21:20 80 MG EZETIMIBE 10 mg DAILY PO 08/13/25 10:00 08/13/25 09:24 10 MG Metoprolol Succinate 50 mg DAILY PO 08/13/25 06:30 08/13/25 07:12 50 MG Lisinopril 30 mg DAILY PO 08/13/25 10:00 08/13/25 09:24 30 MG Insulin Glargine 20 units HS SC 08/13/25 22:00 Examination: GENERAL:Normal, LUNGS:Normal, CVS:Normal, NEURO:Normal laboratory and microbiology Laboratory Tests 08/13/25 10:57 Test 08/13/25 10:57 Range/Units Serum Glucose 322 H 74-106 mg/dL Problem List/Assessment/Plan Problem List/Assessment/Plan Hypertensive urgency Severe hypertriglyceridemia Dyslipidemia Pulmonary hypertension Type 2 diabetes mellitus, uncontrolled with hemoglobin A1c 10.0% History prostate cancer status post radiation Morbid obesity Dietary noncompliance Plan/Recommendations (Dr. Clancy): Transthoracic echocardiogram reveals an EF of 60%, RVSP 60 mmHg. Continue with the aggressive blood pressure control as tolerated. Patient noted to have severe hypertriglyceridemia at 680mg/dL. Increase statin therapy, recommend addition of fenofibrate as outpatient (as we do not carry this medication inpatient). The patient reports being off of all of his medications for over one month while in the process of switching over primary care provider's. The patient reports his previous PCP would not refill his medications if he did not come in to the office to see them. This upset the patient which prompted him to switch providers, but unknowingly to him, the process took longer than expected. Had an extensive conversation with the patient regarding risk factor modifications. During the time of assessment, the patient is noted to have a Alexander's bag at bedside. Patient educated about proper diet as well as compliance with medications. Continue with close cardiac surveillance. He also mentions a previous coronary angiogram in 2019 in which no catheter based intervention was deemed necessary. There is no further inpatient cardiac workup indicated at this time. Patient has been extensively educated regarding medication compliance, dietary changes, and following up with a size changer in the outpatient setting within 1-2 weeks post discharge. Thank you for allowing us to care for this patient. Please call with any questions or concerns. This medical document was created using an electronic medical record system with voice recognition software and computerized dictation system. Although this document has been carefully reviewed, there might still be some phonetic and typographical errors. Occasional wrong-word or ``sound-alike substitutions may have occurred due to the inherent limitations of voice recognition software. These areas are purely typographical due to imperfections of the software programs and do not reflect any compromise in the patient's medical care. Please read the chart carefully and recognize, using context, where these substitutions have occurred. Plan discussed with: Patient Date of Service: Aug 13, 2025 Billing Provider: CHIOMA GOVEA Common Visit Codes: [id number] INP/OBS CARE(HIGH) CHIOMA GOVEA Aug 13, 2025 17:27
--- NOTE | 2025-08-13 19:00 | DVHPN2 ---
Subjective Patient has stated that he has been struggling with a complaining of blood sugar as well as hypertension. Changes from previous H/P or p: No Changes Eyes: No Pain, No Vision change, No Conjunctivae inflammation, No Eyelid inflammation, No Other, No Redness ENT: No Ear pain, No Ear discharge, No Nose pain, No Nose discharge, No Nose congestion, No Mouth pain, No Mouth swelling, No Throat pain, No Throat swelling, No Other Cardiovascular: No Chest Pain, No Palpitations, No Orthopnea, No Paroxysmal Noc. Dyspnea, No Edema, No Lt Headedness, No Other Respiratory: No Cough, No Dry, No Shortness of breath, No SOB with excertion, No Wheezing, No Hemoptysis, No Pleuritic Pain, No Sputum, No Other Gastrointestinal: No Nausea, No Vomiting, No Abdominal Pain, No Diarrhea, No Constipation, No Melena, No Hematochezia, No Other Genitourinary: No Dysuria, No Frequency, No Incontinence, No Hematuria, No Retention, No Other Musculoskeletal: No other, No neck pain, No shoulder pain, No arm pain, No back pain, No hand pain, No leg pain, No foot pain Skin: No Rash, No Lesions, No Jaundice, No Bruising, No Other Objective Vitals Vital Signs Date Time Temp Pulse Resp B/P (MAP) Pulse Ox O2 Delivery O2 Flow Rate FiO2 08/13/25 17:00 98.1 83 21 178/103 (128) 96 98.1 08/13/25 08:00 Room Air* 0 21 Intake/Output Intake and Output 08/13/25 07:00 Intake Total 2900 ml Balance 2900 ml Intake Oral 2900 ml # Voids 1 # Bowel Movements 4 Exam HEENT pupils are reactive Neck is supple CV is S1-S2 regular rate and rhythm Respiratory diminished breath sounds bases GI positive bowel sound Extremity 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 Medications Current Medications Medications Dose Ordered Sig/Radha Route Start Time Stop Time Status Last Admin Dose Admin Ondansetron HCl 4 mg Q4HP PRN IV 08/11/25 13:15 Docusate Sodium 100 mg BIDPRN PRN PO 08/11/25 13:15 Enoxaparin Sodium 40 mg DAILY SC 08/12/25 10:00 08/13/25 09:25 40 MG Morphine Sulfate 2 mg Q4HPRN PRN IV 08/11/25 13:15 08/13/25 06:39 2 MG Nitroglycerin 0.4 mg Q5MINP PRN SL 08/11/25 13:15 Hydralazine HCl 10 mg Q6HP PRN IV 08/11/25 13:15 08/13/25 16:57 10 MG Diagnostic Test (Pha) 1 strip ACHS 08/11/25 17:00 08/13/25 17:05 1 STRIP Insulin Human Regular HS SC 08/11/25 22:00 08/12/25 21:25 8 UNITS Insulin Human Regular AC SC 08/11/25 17:00 08/13/25 17:07 3 UNITS Dextrose 50 ml UD PRN IV 08/11/25 13:15 Aspirin 81 mg DAILY PO 08/12/25 10:00 08/13/25 09:24 81 MG Atorvastatin Calcium 80 mg HS PO 08/12/25 22:00 08/12/25 21:20 80 MG EZETIMIBE 10 mg DAILY PO 08/13/25 10:00 08/13/25 09:24 10 MG Metoprolol Succinate 50 mg DAILY PO 08/13/25 06:30 08/13/25 07:12 50 MG Insulin Glargine 20 units HS SC 08/13/25 22:00 Lisinopril 40 mg DAILY PO 08/14/25 10:00 Laboratory Results Laboratory Tests 08/13/25 10:57 Chemistry Test 08/13/25 10:57 Calcium Level 9.3 mg/dL (8.7-10.4) Assessment/Plan Assessment/Plan 70-year-old male with a known history of type 2 diabetes mellitus, hypertension, history of prostate cancer status post radiation presented to the hospital with a high blood sugar and hypertension found to have 1. Hypertensive urgency 2. Uncontrolled hyperglycemia in the setting of diabetes mellitus type 2 with a hemoglobin A1c>10 3. Morbid obesity classI 4. History of prostate cancer status post radiation -continue diabetic meds, continue hypertensive medications, follow up Cardiology recommendations -add long-acting insulin, insulin teaching, diabetic education. Discharge plan. Plan discussed with: Patient My Orders Orders - SHAVONNE PICKERING MD Procedure Category Date Status Time Insulin Lantus PHA 08/13/25 In Process (Glargine) (Lantus) 22:00 Date of Service: Aug 13, 2025 Billing Provider: SHAVONNE PICKERING MD Common Visit Codes: [id number] INP/OBS CARE(MOD) SHAVONNE PICKERING MD Aug 13, 2025 19:00
[2025-08-13] MEDS ORDERED: INSULIN LANTUS (GLARGINE) 1 /0.01ml (100units/ml) SC ONE (21:52)
[2025-08-13] MEDS: INSULIN LANTUS (GLARGINE) 1 /0.01ml (100units/ml) SC SCH (22:03)
[2025-08-14] VITALS (7 sets, daily range): BP systolic 119–150; BP diastolic 66–86; PULSE 69–91; RESP 15–20; TEMP 36.7; O2SAT 93–97
[2025-08-14] MEDS: LISINOPRIL 20 MG TAB PO SCH (08:28)
[2025-08-14] MEDS ORDERED: BLOO1KIT60 XX (16:22)
[2025-08-14] MEDS ORDERED: LANC-347 XX (16:22)
[2025-08-14] MEDS ORDERED: INSU-567 XX (16:22)
[2025-08-14] MEDS ORDERED: INSLANTI SC (16:22)
--- NOTE | 2025-08-14 16:23 | DVHDS2 ---
Discharge Summary Date of Admission Aug 11, 2025 at 13:13 Date of Discharge: Aug 14, 2025 Labs/Diagnostic Data: Laboratory Results Test 08/14/25 11:29 08/13/25 10:57 08/12/25 04:13 08/11/25 12:22 POC Glucose 308 mg/dl (70-106) White Blood Count 6.5 10^3/uL (4.4-10.8) Red Blood Count 5.33 10^6/uL (4.5-5.90) Hemoglobin 15.3 g/dL (13.5-17.5) Hematocrit 45.0 % (41.0-53.0) Mean Corpuscular Volume 84.3 fL (80.0-100.0) Mean Corpuscular Hemoglobin 28.6 pg (28.0-32.0) Mean Corpuscular Hemoglobin Concent 33.9 g/dL (32.0-36.0) Red Cell Distribution Width 13.8 % (11.8-14.3) Platelet Count 255 10^3/uL (140-450) Mean Platelet Volume 7.6 fL (6.9-10.8) Neutrophils (%) (Auto) 78.3 % (37.0-80.0) Lymphocytes (%) (Auto) 14.1 % (10.0-50.0) Monocytes (%) (Auto) 6.3 % (0.0-12.0) Eosinophils (%) (Auto) 0.5 % (0.0-7.0) Basophils (%) (Auto) 0.8 % (0.0-2.0) Neutrophils # (Auto) 5.1 10 ^3/uL (1.6-8.6) Lymphocytes # (Auto) 0.9 10 ^3/uL (0.4-5.4) Monocytes # (Auto) 0.4 10 ^3/uL (0-1.3) Eosinophils # (Auto) 0 10 ^3/uL (0-0.8) Basophils # (Auto) 0.1 10 ^3/uL (0-0.2) Nucleated Red Blood Cells 0.1 % Sodium Level 133 mmol/L (136-145) Potassium Level 4.2 mmol/L (3.5-5.1) Chloride Level 99 mmol/L (98-107) Carbon Dioxide Level 23 mmol/L (20-31) Anion Gap 11 (5-15) Blood Urea Nitrogen 13 mg/dL (9-23) Creatinine 0.84 mg/dL (0.700-1.30) Glomerular Filtration Rate Calc 93 mL/min (>90) BUN/Creatinine Ratio 15.5 (10.0-20.0) Serum Glucose 322 mg/dL (74-106) Calcium Level 9.3 mg/dL (8.7-10.4) Hemoglobin A1c 10.0 % A1C (<5.7) Magnesium Level 2.0 mg/dL (1.6-2.6) Total Bilirubin 0.5 mg/dL (0.2-1.0) Aspartate Amino Transferase (AST) 26 U/L (13-40) Alanine Aminotransferase (ALT) 32 U/L (7-40) Alkaline Phosphatase 115 U/L (46-116) Total Protein 6.6 g/dL (5.7-8.2) Albumin 3.9 g/dL (3.2-4.8) Triglycerides Level 680 mg/dL (< 150) Cholesterol Level 261 mg/dL (< 200) LDL Cholesterol mg/dL (< 100) HDL Cholesterol 35 mg/dL (40-59) Thyroid Stimulating Hormone (TSH) 3.46 uIU/mL (0.55-4.78) Troponin I High Sensitivity 22 ng/L (</=54) Beta-Hydroxybutyric Acid 0.101 mmol/L (< 0.4) Test 08/11/25 03:50 Urine Opiates Screen Neg (NEGATIVE) Urine Fentanyl Screen Neg (NEGATIVE) Urine Barbiturates Screen Neg (NEGATIVE) Urine Phencyclidine Screen Neg (NEGATIVE) Urine Amphetamines Screen Neg (NEGATIVE) Urine Benzodiazepines Screen Neg (NEGATIVE) Urine Cocaine Screen Neg (NEGATIVE) Urine Cannabinoids Screen Neg (NEGATIVE) Other Laboratory Tests 08/13/25 10:57 Brief Hx & Hospital Course: 70-year-old male with a known history of type 2 diabetes mellitus, hypertension, history of prostate cancer status post radiation presented to the hospital with a high blood sugar and hypertension found to have uncontrolled hypertension with a hypertensive urgency and uncontrolled hyperglycemia in the setting of diabetes mellitus type 2. Patient's hemoglobin A1c more than 10 started on insulin Lantus. Patient is being discharged under stable condition. All the prescription has been sent to the pharmacy. Please follow up with the PCP upon discharge. Condition at Discharge: Stable Final Diagnosis/Problems List 70-year-old male with a known history of type 2 diabetes mellitus, hypertension, history of prostate cancer status post radiation presented to the hospital with a high blood sugar and hypertension found to have 1. Hypertensive urgency 2. Uncontrolled hyperglycemia in the setting of diabetes mellitus type 2 with a hemoglobin A1c>10 3. Morbid obesity classI 4. History of prostate cancer status post radiation Discharge Disposition: Home SNF Discharge Will this Physician continue t: No Discharge Instruct/Medications Diet: Cardiac 2g Na,low cholest Diet comment: Two thousand ADA diet Activity: No Restrictions, As Tolerated Follow Up/Referral: Follow up with the PCP in 1-2 weeks Medications: Medication as prescribed and reconciled. Scheduled Amlodipine Besylate (Norvasc Tablet), 1 TAB PO DAILY, (Reported) Aspirin (Aspir-Low), 81 MG PO DAILY, (Reported) Atorvastatin Calcium (Atorvastatin Calcium), 1 TAB PO DAILY, (Reported) Canagliflozin (Invokana), 100 MG PO DAILY, (Reported) Cholecalciferol (Vitamin D3), 1 TAB PO DAILY, (Reported) Glimepiride (Glimepiride), 1 TAB PO BID, (Reported) Hydrochlorothiazide (Hydrochlorothiazide), 12.5 MG PO DAILY, (Reported) Insulin Glargine (Lantus), 20 UNITS SC HS Losartan Potassium (Losartan Potassium), 1 TAB PO DAILY, (Reported) Metoprolol Tartrate (Metoprolol Tartrate), 25 MG PO BID, (Reported) Pioglitazone Hydrochloride (Actos Tablet), 15 MG PO DAILY, (Reported) Durable Medical Equipment Blood Glucose Monitoring Suppl (D-Care Glucometer Kit/Glu W/Device), KIT XX, (DME) Insulin Syringe/Needle U-100 (Advocate Insulin Syringe/), MG XX HS, (DME) Lancets (Freestyle Lancets), BOX XX, (DME) Discharge Statement: "Patient was advised to return to the ER or call 911 if any headaches, dizziness, shortness of breath, chest pain, abdominal pain, bleeding, fevers, or worsening of medical condition. Patient was counseled about treatment plan, medications, possible side effects, patientverbalized understanding. All questions were answered to the best of my ability. This discharge took greater then 30 minutes in planning, reviewing documentation, counseling the patient, and discussing with other team members." ASSESSMENT ASSESSMENT Assessment 70-year-old male with a known history of type 2 diabetes mellitus, hypertension, history of prostate cancer status post radiation presented to the hospital with a high blood sugar and hypertension found to have 1. Hypertensive urgency 2. Uncontrolled hyperglycemia in the setting of diabetes mellitus type 2 with a hemoglobin A1c>10 3. Morbid obesity classI 4. History of prostate cancer status post radiation Date of Service: Aug 14, 2025 Billing Provider: SHAVONNE PICKERING MD Common Visit Codes: [id number] DISCH DAY >30min SHAVONNE PICKERING MD Aug 14, 2025 16:23
== END 2025-08-14 18:14 | disposition home or self-care (01) | DRG 639 ==
LOC: ER 10:24 → OVERFLOW 13:13 → TELE-EAST 13:25
PROVIDERS: ADMIT Internal Medicine; ATTEND Internal Medicine
DX: E11.65 Type 2 diabetes mellitus with hyperglycemia (principal); E66.01 Morbid (severe) obesity due to excess calories; I10 Essential (primary) hypertension; E78.1 Pure hyperglyceridemia; Z85.46 Personal history of malignant neoplasm of prostate; Z91.148 Patient's other noncompliance with medication regimen for other reason; Z83.3 Family history of diabetes mellitus; Z82.49 Family history of ischemic heart disease and other diseases of the circulatory system; Z92.3 Personal history of irradiation; Z79.899 Other long term (current) drug therapy; Z68.34 Body mass index [BMI] 34.0-34.9, adult; I16.0 Hypertensive urgency
CPT/HCPCS: 36415; 71045; 80048; 80053; 80061; 80307; 82010; 82962; 83036; 83735; 84443; 84484; 85025; 93005; 93306; 99291; 99292; G0378; J1815